=== PATIENT | male | born 1990 | race American Indian/Alaskan Native ===

== ENCOUNTER 2020-09-03 00:03 | Emergency (ER) | payer SELFPAY ==
[2020-09-03 02:19] LABS: Basophils % (Auto) 0.6 % (0.0-1.8); Eosinophils # (Auto) 0.1 K/mm3 (0.0-0.4); Eosinophils % (Auto) 1.7 % (0.0-4.3); Hematocrit 46.6 % (35.5-45.6); Hemoglobin 15.2 gm/dl (11.8-15.2); Lymphocytes # (Auto) 2.2 K/mm3 (1.2-5.4); Lymphocytes % (Auto) 41.2 % (13.4-35.0); Mean Corpuscular HGB Conc 33 % (32-34); Mean Corpuscular Volume 85 fl (84-94); Monocytes # (Auto) 0.4 K/mm3 (0.0-0.8); Monocytes % (Auto) 8.5 % (0.0-7.3); Platelet Count 190 K/mm3 (140-440); Red Blood Count 5.51 M/mm3 (3.65-5.03)
[2020-09-03 02:35] LABS: Alanine Aminotransferase 16 units/L (7-56); Albumin 4.6 g/dL (3.9-5); BUN/Creatinine Ratio 17; Blood Urea Nitrogen 20 mg/dL (9-20); Calcium 9.5 mg/dL (8.4-10.2); Hemolysis Index 7
[2020-09-03 05:30] VITALS: BP 133/92
--- NOTE | 2020-09-03 05:38 | Emergency Department Report ---
ED N/V/D HPI - General Chief complaint: Nausea/Vomiting/Diarrhea Stated complaint: food poisioning Time Seen by Provider: 09/03/20 04:35 Source: patient Mode of arrival: Ambulatory Limitations: No Limitations - History of Present Illness Initial comments: 30-year-old -[place] male presents to the emergency room reports that he ate a sandwich from a machine on Saturday and started vomiting. Patient states that he had last vomited last night around 11 PM. Patient states that he has intermittent nausea. States that he noticed some blood in his vomitus today which was Saturday in states that he had an episode of black stool today. Patient did report he had a headache but that has resolved. Patient denies any abdominal pain. He states he did take some Pepto-Bismol but that was before he had the black stool. He denies any past medical history. Reports he does not take any medications on a daily basis and has no known drug allergies. MD complaint: nausea, vomiting Onset/Timin -: days(s) Description of Vomiting: food contents Associated Abdominal Pain: No Severity: mild Pain Scale: 1 Consistency: intermittent Improves with: none Worsens with: none Context: possible food poisoning Associated Symptoms: other (Black stool, blood-streaked vomitus) - Related Data Previous Rx's Medication Instructions Recorded Last Taken Type Ondansetron [Zofran Odt] 4 mg PO Q8HR #8 tab.rapdis 09/03/20 Unknown Rx Allergies Allergy/AdvReac Type Severity Reaction Status Date / Time No Known Allergies Allergy Unverified 01/18/20 13:31 ED Review of Systems ROS: Stated complaint: food poisioning Other details as noted in HPI Comment: All other systems reviewed and negative ED Past Medical Hx - Past Medical History Previous Medical History?: No - Surgical History Past Surgical History?: No - Social History Smoking Status: Never Smoker Substance Use Type: None - Medications Home Medications: Home Medications Medication Instructions Recorded Confirmed Last Taken Type Ondansetron [Zofran Odt] 4 mg PO Q8HR #8 tab.rapdis 09/03/20 Unknown Rx ED Physical Exam - General Limitations: No Limitations General appearance: alert, in no apparent distress - Head Head exam: Present: atraumatic, normocephalic - Eye Eye exam: Present: normal appearance - ENT ENT exam: Present: mucous membranes moist - Neck Neck exam: Present: normal inspection - Respiratory Respiratory exam: Present: normal lung sounds bilaterally. Absent: respiratory distress - Cardiovascular Cardiovascular Exam: Present: regular rate, normal rhythm. Absent: systolic murmur, diastolic murmur, rubs, gallop - GI/Abdominal GI/Abdominal exam: Present: soft, normal bowel sounds - Rectal Rectal exam: Present: deferred - Extremities Exam Extremities exam: Present: normal inspection - Back Exam Back exam: Present: normal inspection - Neurological Exam Neurological exam: Present: alert, oriented X3 - Psychiatric Psychiatric exam: Present: normal affect, normal mood - Skin Skin exam: Present: warm, dry, intact, normal color. Absent: rash ED Course Vital Signs 09/03/20 09/03/20 01:26 05:29 Temperature 98.5 F 97.6 F Pulse Rate 71 70 Respiratory 18 18 Rate Blood Pressure 146/83 Blood Pressure 133/92 [Left] O2 Sat by Pulse 100 99 Oximetry ED Medical Decision Making - Lab Data Result diagrams: 09/03/20 01:54 09/03/20 01:54 - Medical Decision Making 30-year-old -[place] male presents to the emergency room reports that he ate a sandwich from a machine on Saturday and started vomiting. Patient states that he had last vomited last night around 11 PM. Patient states that he has intermittent nausea. States that he noticed some blood in his vomitus today which was Saturday in states that he had an episode of black stool today. Patient did report he had a headache but that has resolved. Patient denies any abdominal pain. He states he did take some Pepto-Bismol but that was before he had the black stool. He denies any past medical history. Reports he does not take any medications on a daily basis and has no known drug allergies. CBC CMP within normal limits. Negative guaiac stool. Patient is vital signs are stable. Will discharge patient having follow-up with a primary care provider. We will give a prescription for Zofran as needed for nausea. Encouraged to increase his fluids intake. Critical care attestation.: If time is entered above; I have spent that time in minutes in the direct care of this critically ill patient, excluding procedure time. ED Disposition Clinical Impression: Nausea and vomiting Disposition: DC- TO HOME OR SELFCARE Is pt being admited?: No Does the pt Need Aspirin: No Condition: Stable Instructions: Nausea and Vomiting, Adult, [id number] Additional Instructions: Vitals are stable labs are stable stool shows no blood. Follow-up with a primary care provider. Increase your fluid intake. You can take Zofran as needed for the nausea and vomiting. Prescriptions: Ondansetron [Zofran Odt] 4 mg PO Q8HR #8 tab.rapdis Referrals: HOLDEN NARAYAN MD [Primary Care Provider] - 3-5 Days
== END 2020-09-03 05:43 | disposition home or self-care (01) ==
LOC: ED 00:03
DX: R11.2 Nausea with vomiting, unspecified (principal); Z79.899 Other long term (current) drug therapy
CPT/HCPCS: 36415; 80053; 82271; 85025